=== PATIENT | female | born 1995 | race American Indian/Alaskan Native ===

== ENCOUNTER 2016-04-10 05:56 | Emergency (ER) | payer MEDICAID ==
[2016-04-10 06:57] VITALS: BP 110/67
[2016-04-10 07:41] LABS: Basophils % (Auto) 0.6 % (0.0-1.8); Eosinophils % (Auto) 4.7 % (0.0-4.3); Hematocrit 36.6 % (30.3-42.9); Hemoglobin 12.1 gm/dl (10.1-14.3); Mean Corpuscular HGB Conc 33 % (30-34); Mean Corpuscular Hemoglobin 29 pg (28-32); Mean Corpuscular Volume 87 fl (79-97); Platelet Count 267 K/mm3 (140-440); Red Blood Count 4.22 M/mm3 (3.65-5.03); Red Cell Distribution Width 12.9 % (13.2-15.2); White Blood Count 6.9 K/mm3 (4.5-11.0)
[2016-04-10 07:59] LABS: Alanine Aminotransferase 7 units/L (7-56); Albumin/Globulin Ratio 1.3 %; Alkaline Phosphatase 55 units/L (35-129); Anion Gap 15 mmol/L; BUN/Creatinine Ratio 18.57; Bilirubin,Total < 0.2 mg/dL (0.1-1.2); Blood Urea Nitrogen 13 mg/dL (7-17); Calcium 8.7 mg/dL (8.4-10.2); Carbon Dioxide 25 mmol/L (22-30); Chloride 101.8 mmol/L (98-107); Glucose 99 mg/dL (65-100); Lipase 40 units/L (13-60); Potassium 4.2 mmol/L (3.6-5.0); Sodium 138 mmol/L (137-145)
[2016-04-10 09:15] LABS: Bacteria,Urine 1+ /HPF (Negative); Bilirubin,Urine NEG (Negative); Blood,Urine NEG (Negative); Ketones,Urine NEG (Negative); Leukocyte Esterase,Urine LG (Negative); Nitrite,Urine NEG (Negative); Protein,Urine <15 mg/dL mg/dL (Negative); Urobilinogen,Urine < 2.0 mg/dL (<2.0)
--- NOTE | 2016-04-12 16:03 | ED Elopement Review ---
ED Pt Elopement review - Results review Lab results: Laboratory Tests 04/10/16 04/10/16 04/10/16 07:23 07:23 08:24 WBC 6.9 RBC 4.22 Hgb 12.1 Hct 36.6 MCV 87 MCH 29 MCHC 33 RDW 12.9 L Plt Count 267 Lymph % (Auto) 32.7 [place] % (Auto) 6.4 Eos % (Auto) 4.7 H Baso % (Auto) 0.6 Lymph # 2.3 [place] # 0.4 Eos # 0.3 Baso # 0.0 Seg Neutrophils % 55.6 Seg Neutrophils # 3.9 Sodium 138 Potassium 4.2 Chloride 101.8 Carbon Dioxide 25 Anion Gap 15 BUN 13 Creatinine 0.7 Estimated GFR > 60 BUN/Creatinine Ratio 18.57 Glucose 99 Calcium 8.7 Total Bilirubin < 0.2 AST 14 ALT 7 Alkaline Phosphatase 55 Total Protein 7.0 Albumin 4.0 Albumin/Globulin Ratio 1.3 Lipase 40 Urine Color Yellow Urine Turbidity Turbid Urine pH 7.0 Ur Specific [place] 1.019 Urine Protein <15 mg/dl Urine Glucose (UA) Neg Urine Ketones Neg Urine Blood Neg Urine Nitrite Neg Ur Reducing Substances Not Reportable Urine Bilirubin Neg Urine Ictotest Not Reportable Urine Urobilinogen < 2.0 Ur Leukocyte Esterase Lg Urine WBC (Auto) 5.0 Urine RBC (Auto) 7.0 U Epithel Cells (Auto) 26.0 H Urine Bacteria (Auto) 1+ Urine Yeast (Bud[place]) 1+ Urine HCG, Qual Negative - Call Back decision Pt Call Back Decision: No action required
== END 2016-04-10 21:40 | disposition left against medical advice (07) ==
LOC: ED 05:56
DX: R10.84 Generalized abdominal pain (principal); Z53.21 Procedure and treatment not carried out due to patient leaving prior to being seen by health care provider
CPT/HCPCS: 36415; 80053; 81001; 81025; 83690; 85025